=== PATIENT | male | born 1985 | race Native Hawaiian/Other Pacific Islander ===

== ENCOUNTER 2016-05-17 10:18 | Emergency (ER) | payer OTHER ==
[~2016-05-17] VITALS: Ht 182.9 cm; Wt 81.6 kg
[2016-05-17 11:03] LABS: PLATELET COUNT 187 K/uL (142-355)
[2016-05-17 11:08] LABS: POTASSIUM 3.8 mmol/L (3.6-5.2); SODIUM 134 mmol/L (136-145)
== END 2016-05-17 11:40 | disposition home or self-care (01) ==
LOC: ED 10:18
DX: J03.90 Acute tonsillitis, unspecified (principal)
CPT/HCPCS: 36415; 80053; 85027; 87081; 87804; 87880; 99283

== ENCOUNTER 2022-09-05 17:46 | Emergency (ER) | payer BC ==
[~2022-09-05] VITALS: Ht 182.9 cm; Wt 99.8 kg
[2022-09-05 19:50] VITALS: BP 110/78; TEMP 98.7
== END 2022-09-05 19:50 | disposition home or self-care (01) ==
LOC: ED 17:46
DX: I80.3 Phlebitis and thrombophlebitis of lower extremities, unspecified (principal); R60.9 Edema, unspecified
CPT/HCPCS: 96372; 99283; J2930